=== PATIENT | male | born 1990 ===

== ENCOUNTER 2020-08-14 08:23 | Emergency (ER) | payer OTHER ==
[~2020-08-14] VITALS: Ht 182.9 cm; Wt 70.5 kg
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
[2020-08-14] MEDS ORDERED: DIPH,PERTUSS(ACELL),TET VAC/PF 0.5 ML IM-VACC ONE ×2 (09:00→09:18)
[2020-08-14] MEDS ORDERED: LIDOCAINE-MPF 1%, 5ML INFIL ONE (09:00)
[2020-08-14] MEDS ORDERED: PLEASE ENTER ALLERGIES MC SCH (09:00)
[2020-08-14] MEDS ORDERED: LIDOCAINE-MPF 1%, 5ML ONE ×2 (09:17→10:00)
[2020-08-14] MEDS ORDERED: ONDANSETRON 2MG/ML, 2ML IVPush ONE (10:00)
[2020-08-14] MEDS ORDERED: MORPHINE SULFATE 4 MG/ML, 1ML IVPush PRN (10:00)
[2020-08-14] MEDS ORDERED: SODIUM CHLORIDE FLUSH 10ML SYR IVF ONE (10:00)
--- NOTE | 2020-08-14 10:00 | NUR ---
EMERGENT TRANSPORT SET UP W / [facility], AMBULANCE ON THE WAY.
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
[2020-08-14] MEDS ORDERED: HYDROmorphone 1 MG/ML, 1ML INJ ONE ×2 (10:09→10:20)
--- NOTE | 2020-08-14 10:27 | NUR ---
CT INSERTED, 2MG DILAUDED GIVEN DURING PROCEDURE, VSS POST PROCEDURE. [facility] HERE TO TRANSPORT PT TO [facility].
[2020-08-14 10:29] VITALS: BP 123/78
--- NOTE | 2020-08-14 10:30 | NUR ---
PER ERMD COUGH, WATER SEAL BELLOWING APPROPRIATELY, NO CONFIRMATORY CHEST XRAY NEEDED PER ERMD
--- NOTE | 2020-08-14 10:41 | NUR ---
REPORT TO RECIEVING FACILITY, LIFTER/DRIVER LAURA GIVEN REPORT
--- NOTE | 2020-08-14 10:50 | NUR ---
TP RN: PTS S/O CALLING ED FOR PT, INFORMED PT NOT IN THIS FACILITY, ADVISED TO CALL OTHER FACILITIES.
== END 2020-08-14 10:54 ==
LOC: ED 10:48
DX: S21.112A Laceration without foreign body of left front wall of thorax without penetration into thoracic cavity, initial encounter (principal); S01.511A Laceration without foreign body of lip, initial encounter; S41.112A Laceration without foreign body of left upper arm, initial encounter; J93.9 Pneumothorax, unspecified; M25.561 Pain in right knee; M79.672 Pain in left foot; F17.210 Nicotine dependence, cigarettes, uncomplicated; X99.1XXA Assault by knife, initial encounter; Y93.89 Activity, other specified; Y92.098 Other place in other non-institutional residence as the place of occurrence of the external cause; Y99.8 Other external cause status
CPT/HCPCS: 32551; 71046; 99291